=== PATIENT | female | born 2000 | race Hispanic/Latino ===

== ENCOUNTER 2018-05-11 19:06 | Emergency (ER) | payer OTHER ==
[2018-05-11] MEDS ORDERED: Lidocaine 1% w/Epinephrine 1:100K 20 ML VIAL ONE (19:53)
[2018-05-11] MEDS ORDERED: Bacitracin Zinc 1 Packet ONE (20:58)
== END 2018-05-11 21:02 | disposition home or self-care (01) ==
LOC: ERS 19:06
DX: S01.112A Laceration without foreign body of left eyelid and periocular area, initial encounter (principal); V49.9XXA Car occupant (driver) (passenger) injured in unspecified traffic accident, initial encounter
CPT/HCPCS: 12011; J2001